=== PATIENT | female | born 1995 | race Caucasian/White ===

== ENCOUNTER → 2019-01-22 | Outpatient (REF) ==
[~2019-01-22] MED LIST: AMOXICILLIN500 MG PO; CORTISPORIN OTI10 M2 AD; FAMVIR500 MG PO; LEVOTHYROXIN50 MCG PO; TYLENOL # 31 TA1 PO; ZITHROMAX250 MG PO
== END | disposition home or self-care (01) | DRG 761 ==
LOC: LAB 20:02
DX: N91.2 Amenorrhea, unspecified (principal); E55.9 Vitamin D deficiency, unspecified; E28.2 Polycystic ovarian syndrome; N92.6 Irregular menstruation, unspecified